=== PATIENT | female | born 1970 | race Caucasian/White ===

== ENCOUNTER 2016-10-21 10:10 | Outpatient (CLI) | payer BC | END 2016-10-21 10:11 | disposition home or self-care (01) | DX: Z12.31 Encounter for screening mammogram for malignant neoplasm of breast (principal) ==

== ENCOUNTER 2016-11-15 14:37 | Outpatient (CLI) | payer BC | END 2016-11-15 14:38 | disposition home or self-care (01) | DX: I49.9 Cardiac arrhythmia, unspecified (principal) ==

== ENCOUNTER 2016-11-18 12:46 | Outpatient (CLI) | payer BC | END 2016-11-18 12:47 | disposition home or self-care (01) | DX: R00.9 Unspecified abnormalities of heart beat (principal) ==

== ENCOUNTER 2019-06-11 14:56 | Outpatient (CLI) | payer BC ==
--- NOTE | 2019-06-13 10:55 | CT Report ---
Reason: CHRONIC SINUSITIS Procedure Date: 06/11/2019 Accession Number: [id number] / [id number] Procedure: CT - Sinuses CPT Code: FULL RESULT: EXAM: CT SINUS EXAM DATE: 06/11/2019 03:16 PM. HISTORY: CHRONIC SINUSITIS. COMPARISONS: None. TECHNIQUE: Routine multi-axial CT imaging performed through the sinuses. Iodinated IV contrast: None. Reconstructions: Multiplanar reformats. In accordance with CT protocol optimization, one or more of the following dose reduction techniques were utilized for this exam: automated exposure control, adjustment of mA and/or KV based on patient size, or use of iterative reconstructive technique. FINDINGS: RIGHT Frontal: Normal. Ethmoid: Normal. Maxillary: Normal. Sphenoid: Normal. Drainage Pathways: The frontal recess, ostiomeatal complex and sphenoethmoidal recess are patent and normal. LEFT Frontal: Normal. Ethmoid: Normal. Maxillary: Normal. Sphenoid: Normal. Drainage Pathways: The frontal recess, ostiomeatal complex and sphenoethmoidal recess are patent and normal. Nasal Cavity: There is lower nasal septal leftward deviation, 6 mm. No mass or other significant anatomic abnormality evident. Osseous Structures: Unremarkable. Orbits: Unremarkable. Other: None. IMPRESSION: 1. Negative for sinusitis. 2. Mild lower nasal septal leftward deviation. RADIA
== END 2019-06-11 14:57 | disposition home or self-care (01) ==
LOC: DI 14:56
PROVIDERS: ATTEND Physician Assistant
DX: J34.2 Deviated nasal septum (principal)
CPT/HCPCS: 70486

== ENCOUNTER 2021-08-10 09:10 | Outpatient (CLI) | payer OTHER ==
--- NOTE | 2021-08-11 09:52 | Mammography Report ---
BILATERAL DIGITAL SCREENING MAMMOGRAM 3D/2D: 08/10/2021 CLINICAL: Routine screening. Comparison is made to exams dated: 10/21/2016 mammogram, 10/26/2012 mammogram, and 03/04/2011 mammogram - [facility]. There are scattered fibroglandular elements in both breasts. No significant masses, calcifications, or other findings are seen in either breast. There has been no significant interval change. IMPRESSION: NEGATIVE There is no mammographic evidence of malignancy. A 1 year screening mammogram is recommended. This exam was interpreted at Station ID: [id number]. NOTE: For mammograms, a report in lay terms will be sent to the patient. Approximately 15% of breast malignancies will not be visualized mammographically. In the management of a palpable breast mass, a negative mammogram must not discourage biopsy of a clinically suspicious lesion. Electronically Signed By: Luis Bills M.D. [email or web address]:08/10/2021 11:16:27 ACR BI-RADS Category 1: Negative 3341F PARENCHYMAL PATTERN: (A) - The breast(s) demonstrate(s) scattered fibroglandular densities. BI-RADS CATEGORY: (1) - 1 RECOMMENDATION: (ANNUAL) - Recommend routine annual screening mammography. [id number] 1 year screening LATERALITY: (B)
== END 2021-08-10 09:11 | disposition home or self-care (01) ==
LOC: DI 09:10
DX: Z12.31 Encounter for screening mammogram for malignant neoplasm of breast (principal)

== ENCOUNTER 2021-09-09 09:48 | Outpatient (CLI) | payer OTHER ==
[2021-09-09] MEDS ORDERED: GADOBUTROL 10 MMOL/10 ML VIAL ONE (10:14)
--- NOTE | 2021-09-09 15:56 | MRI Report ---
PROCEDURE: Brain W/WO INDICATIONS: MEMORY LOSS, WORD FINDING DIFFICULTY, BALANCE DISO CONTRAST: IV CONTRAST: Gadavist ml: 9 TECHNIQUE: Noncontrast axial T1 spin echo, axial T2 fast spin echo, sagittal and axial FLAIR, coronal T2 fast sp in echo, axial gradient echo, axial diffusion and ADC through the brain. After the administration of contrast, axial and coronal T1 spin echo with fat saturation through the brain. COMPARISON: None. FINDINGS: Image quality: Excellent. CSF spaces: Basal cisterns are patent. No extra-axial fluid collections. Ventricles are normal in size and shape. Brain: No midline shift. No intracranial bleeds or masses. No abnormal intracranial enhancement. There is minimal periventricular white matter chronic small vessel ischemic change. The brainstem ap pears normal. Diffusion-weighted images demonstrate no acute ischemic insults. No chronic ischemic insults. Normal intravascular flow voids are present. Dural sinuses demonstrate normal postcontrast enhancement. Skull and face: Calvarial marrow is normal in signal. Orbits appear normal. Sinuses: Sinuses and mastoids appear clear. IMPRESSION: 1. No acute intracranial disease process. 2. No abnormal intracranial mass or mass effect. 3. No suspicious postcontrast enhancement. Reviewed by: Marichuy Lamas MD, PhD on 09/09/2021 3:54 PM PST Approved by: Marichuy Lamas MD, PhD on 09/09/2021 3:54 PM PST Station ID: [id number]
[2021-09-09] MEDS: GADOBUTROL 10 MMOL/10 ML VIAL IVP ONE (17:56)
== END 2021-09-09 09:49 | disposition home or self-care (01) ==
LOC: DI 09:48
PROVIDERS: ATTEND Psychiatry & Neurology Neurology
DX: R47.89 Other speech disturbances (principal); R26.89 Other abnormalities of gait and mobility; F09 Unspecified mental disorder due to known physiological condition
CPT/HCPCS: 70553; A9585

== ENCOUNTER 2024-02-02 16:08 | Outpatient (CLI) | payer OTHER ==
--- NOTE | 2024-02-03 13:08 | XRAY Report ---
PROCEDURE: Foot 3+V BL (Weight Bearing) INDICATIONS: BILATERAL FOOT PAIN TECHNIQUE: 3 views of the foot were acquired. COMPARISON: None. FINDINGS: Bones: No fractures or dislocations. No suspicious bony lesions. Mild osteoarthritic changes bilat erally. Plantar calcaneal spurring on the right. Soft tissues: No tibiotalar joint effusion. Achilles tendon appears normal. IMPRESSION: 1. Mild degenerative joint disease. 2. Mild right plantar calcaneal spurring. Reviewed by: Corey Ireland MD on 02/03/2024 1:07 PM PDT Approved by: Corey Ireland MD on 02/03/2024 1:07 PM PDT Station ID: [id number]
== END 2024-02-02 16:09 | disposition home or self-care (01) ==
LOC: DI 16:08
PROVIDERS: ATTEND Podiatrist
DX: M19.071 Primary osteoarthritis, right ankle and foot (principal); M19.072 Primary osteoarthritis, left ankle and foot; M77.31 Calcaneal spur, right foot